=== PATIENT | female | born 1995 | race Caucasian/White ===

== ENCOUNTER 2020-06-05 14:21 | Outpatient (CLI) | payer OTHER | END 2020-06-05 14:22 | disposition EMS.NT | LOC: EMS 14:21 | DX: M25.572 Pain in left ankle and joints of left foot (principal) ==

== ENCOUNTER 2020-06-05 14:46 | Emergency (ER) | payer OTHER ==
--- NOTE | 2020-06-05 14:59 | ED Physician Documentation ---
PD HPI LOWER EXT INJURY - Stated complaint Stated Complaint: LT ANKLE INJ - Chief complaint Chief Complaint: Trauma Ext - History obtained from History obtained from: Patient - History of Present Illness PD HPI LOW EXT INJURY LOCATION: Left, Ankle Type of injury: Fall, Twist (fell and landed to left ankle, with pain and deformity. Unable to stand back up. 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 No: Weakness, Numbness Similar symptoms before: Has not had sx before Recently seen: Not recently seen Review of Systems Constitutional: denies: Fever Nose: denies: Rhinorrhea / runny nose, Congestion Throat: denies: Sore throat Respiratory: denies: Cough Skin: denies: Abrasion (s), Laceration (s) Neurologic: denies: Focal weakness, Numbness, Headache, Head injury PD PAST MEDICAL HISTORY - Past Medical History Cardiovascular: None Musculoskeletal: None - Present Medications Home Medications: Ambulatory Orders Medication Instructions Recorded Confirmed HYDROcod/ACETAM 5/325 [Sorrento 5/325] 1 ea PO Q6H PRN #20 tablet 06/05/20 Ibuprofen [Motrin] 600 mg PO TID PRN #25 tab 06/05/20 - Allergies Allergies/Adverse Reactions: Allergies Allergy/AdvReac Type Severity Reaction Status Date / Time amoxicillin Allergy Rash Verified 06/05/20 14:50 PD ED PE NORMAL - Vitals Vital signs reviewed: Yes - General General: Alert and oriented X 3, Well developed/nourished, Other (appears in pain. Vacuum splint in place on left ankle/lower leg. ) - HEENT HEENT: Atraumatic - Neck Neck: Supple, no meningeal sign, No bony TTP - Respiratory Respiratory: Clear bilaterally, Other (no chestwall tenderness. ) - Abdomen Abdomen: Soft, Non tender - Derm Derm: Normal color, Warm and dry - Extremities Extremities: Other (Leg ankle is markedly tender both medially and laterally. There is some slight apparent lateral displacement of the foot in the mortise. Good color and capillary refill are noted in the foot. Normal sensation and toe wiggling. She is unable to move her ankle.) - Neuro Neuro: Alert and oriented X 3, No motor deficit, No sensory deficit, Normal speech Results - Vitals Vitals: Oxygen O2 Source Room air - Rads (name of study) left ankle Radiology: Prelim report reviewed (distal fibular fracture with lateral displacement and widening of medial mortis. ), See rad report Procedures - Splint (location) left ankle Splint applied by: Physician Type of splint: Fiberglass, Posterior, Stirrup Other: Patient tolerated well, No complications, Neurovascular intact, Good alignment, Crutches provided PD MEDICAL DECISION MAKING - ED course Complexity details: reviewed results (fibular fracture and widened medial mortis.), considered differential, d/w patient Departure - Departure Disposition: Home, Self Care Clinical Impression: Closed fibular fracture Qualifiers: Encounter type: initial encounter Fibula location: lateral malleolus Fracture alignment: displaced Laterality: left Qualified Code(s): S82.62XA - Displaced fracture of lateral malleolus of left fibula, initial encounter for closed fracture Medial ankle sprain Qualifiers: Encounter type: initial encounter Laterality: left Qualified Code(s): S93.422A - Sprain of deltoid ligament of left ankle, initial encounter Condition: Stable Record reviewed to determine appropriate education?: Yes Instructions: ED Fx Ankle General Follow-Up: Xu Maravilla MD [Provider Admit Priv/Credential] - Prescriptions: Ibuprofen [Motrin] 600 mg PO TID PRN #25 tab PRN Reason: Pain HYDROcod/ACETAM 5/325 [Sorrento 5/325] 1 ea PO Q6H PRN #20 tablet PRN Reason: Pain Comments: Elevate rest and ice the ankle often to reduce swelling. Keep the splint on. Use crutches for nonweightbearing. Ibuprofen three times a day with food. To that add Tylenol or hydrocodone as needed for pain. Follow-up with orthopedics within the next week or so. Call Monday morning for an appointment. This may need surgical repair and will be the judgment of the orthopedist when seen on follow-up. Limited activity until follow-up. Discharge Date/Time: 06/05/20 17:24
[2020-06-05] MEDS ORDERED: HYDROmorphone 2 MG/ML VIAL IM STA (15:13)
[2020-06-05] MEDS ORDERED: KETOROLAC 30 MG/ML VIAL IM STA (15:13)
--- NOTE | 2020-06-05 15:20 | XRAY Report ---
PROCEDURE: Ankle 3 View LT INDICATIONS: Trauma TECHNIQUE: 3 views of the ankle were acquired. COMPARISON: None FINDINGS: Bones: Acute oblique fracture through distal fibular shaft is seen with posterior and medial displace ment at fracture site. There is complete disruption of ankle mortise with markedly widened medial ank le mortise and lateral subluxation at the tibiotalar joint. Nondisplaced fracture involving posterior malleolus is seen. Ankle mortise is normally aligned. No suspicious bony lesions. Soft tissues: No tibiotalar joint effusion. Achilles tendon appears normal. IMPRESSION: 1. Acute oblique and displaced fracture involving distal fibular shaft. 2. Nondisplaced posterior malleolus fracture. 3. Complete disruption of ankle mortise with lateral subluxation at tibiotalar joint. Reviewed by: Demetrius Sapp MD on 06/05/2020 2:19 PM YUNG Approved by: Demetrius Sapp MD on 06/05/2020 2:19 PM [place] Station ID: [id number]
[2020-06-05 16:26] VITALS: BP 113/79
== END 2020-06-05 17:24 | disposition home or self-care (01) ==
LOC: ED 14:46
DX: S82.62XA Displaced fracture of lateral malleolus of left fibula, initial encounter for closed fracture (principal); S82.55XA Nondisplaced fracture of medial malleolus of left tibia, initial encounter for closed fracture; S93.422A Sprain of deltoid ligament of left ankle, initial encounter; W19.XXXA Unspecified fall, initial encounter
CPT/HCPCS: 29515; 73610; 96372; 99283; 99284; J1170

== ENCOUNTER 2020-06-11 08:00 | Outpatient (CLI) | payer OTHER ==
--- NOTE | 2020-06-11 14:42 | XRAY Report ---
PROCEDURE: Ankle 3 View LT INDICATIONS: LT ANKLE PAIN TECHNIQUE: 3 views of the ankle were acquired. COMPARISON: 06/05/2020 FINDINGS: Bones: Redemonstration of oblique distal left fibular diaphyseal fracture in improved alignment. Rede monstration of mildly displaced posterior malleolar fracture. There is persistent but improved wideni ng of the left medial ankle mortise secondary to persistent lateral subluxation of the talar dome rel ative to the distal tibia. No suspicious bony lesions. Soft tissues: No substantial anterior tibiotalar joint effusion. Achilles tendon appears normal. M oderate overlying soft tissue swelling. IMPRESSION: 1. Improved alignment of oblique, displaced fracture of the distal left femur diaphysis. 2. Mildly displaced posterior malleolus fracture. 3. Persistent but decreased lateral subluxation at the tibiotalar joint. Reviewed by: Clay Leblanc MD on 06/11/2020 1:41 PM YUNG Approved by: Clay Leblanc MD on 06/11/2020 1:41 PM YUNG Station ID: [id number]
== END 2020-06-11 23:59 | disposition home or self-care (01) ==
LOC: DI.N 08:00
PROVIDERS: ATTEND Orthopaedic Surgery
DX: S72.332A Displaced oblique fracture of shaft of left femur, initial encounter for closed fracture (principal); S82.892A Other fracture of left lower leg, initial encounter for closed fracture; S93.02XA Subluxation of left ankle joint, initial encounter; Z01.812 Encounter for preprocedural laboratory examination; Z20.822 Contact with and (suspected) exposure to COVID-19

== ENCOUNTER 2020-06-11 12:00 | Outpatient (CLI) | payer OTHER | END 2020-06-11 12:01 | disposition home or self-care (01) | LOC: LAB.N 12:00 | PROVIDERS: ATTEND Orthopaedic Surgery | DX: Z01.812 Encounter for preprocedural laboratory examination (principal); Z20.822 Contact with and (suspected) exposure to COVID-19 ==

== ENCOUNTER 2020-06-17 06:45 | Day surgery (SDC) | payer OTHER ==
[2020-06-17] MEDS ORDERED: ACETAMINOPHEN 1,000 MG/100 ML 100 ML IV ONE (06:48)
[2020-06-17 07:18] LABS: HCG UR QUAL NEGATIVE
[2020-06-17] MEDS ORDERED: GABAPENTIN 400 MG CAPSULE ONE (07:19)
[2020-06-17] MEDS ORDERED: LACTATED RINGERS 1,000 ML IV ONE ×2 (07:24→13:25)
[2020-06-17] MEDS ORDERED: CELECOXIB 100 MG CAPSULE PO ONE (07:48)
[2020-06-17] MEDS ORDERED: HYDROmorphone 0.5 MG/0.5 ML SYRINGE IVP PRN (08:00)
[2020-06-17] MEDS ORDERED: METOCLOPRAMIDE 10 MG/2 ML VIAL IVP PRN (08:00)
[2020-06-17] MEDS ORDERED: ePHEDrine 50 MG/ML VIAL IVP PRN (08:00)
[2020-06-17] MEDS ORDERED: LACTATED RINGERS 1,000 ML IV SCH (08:00)
[2020-06-17] MEDS ORDERED: NALOXONE 0.4 MG/ML VIAL IVP PRN (08:00)
[2020-06-17] MEDS ORDERED: ceFAZolin 3 GM in SODIUM CHLORIDE 0.9% 100ML 100 ML IV SCH (08:00)
[2020-06-17] MEDS ORDERED: ONDANSETRON 4 MG/2 ML VIAL IVP PRN (08:00)
[2020-06-17] MEDS ORDERED: ATROPINE ABBOJECT 1 MG/10 ML SYRINGE IVP PRN (08:00)
[2020-06-17] MEDS ORDERED: MORPHINE 2 MG/ML CARPUJECT IVP PRN (08:00)
[2020-06-17] MEDS ORDERED: fentaNYL 100 MCG/2 ML VIAL IVP PRN (08:00)
--- NOTE | 2020-06-17 08:00 | ANESTHESIA ---
Pre-Anesthesia VS, & Labs - Diagnosis L trimalleolar fracture - Procedure L ankle ORIF Vital Signs: Temp Pulse Resp BP Pulse Ox 36.8 C 109 H 16 139/88 H 100 06/17/20 07:24 06/17/20 07:24 06/17/20 07:24 06/17/20 07:24 06/17/20 07:24 Height: 5 ft 6 in Weight (kg): 127.3 kg Body Mass Index: 45.3 BMI Classification: Morbidly Obese - NPO >8 hours - Is Patient ?: No - Lab Results Current Lab Results: Laboratory Tests 06/17/20 07:42: POC Whole Bld Glucose 129 H Lab results reviewed: Yes Home Medications and Allergies Home Medications: Ambulatory Orders Acetaminophen [Tylenol] 650 mg PO Q6H PRN 06/15/20 Citalopram Hydrobromide [Celexa] 20 mg PO DAILY 06/15/20 Active Medications Cefazolin Sodium 3 gm/ Sodium (Chloride) 100 mls @ 200 mls/hr IV ONCE APOLINAR Stop: 06/17/20 13:00 Acetaminophen [Tylenol] 650 mg PO Q6H PRN 06/15/20 Citalopram Hydrobromide [Celexa] 20 mg PO DAILY 06/15/20 Allergies/Adverse Reactions: Allergies Allergy/AdvReac Type Severity Reaction Status Date / Time amoxicillin Allergy Rash Verified 06/17/20 07:35 Anes History & Medical History - Anesthetic History Anesthesia Complications: reports: No previous complications Family history of Anesthesia Complications: Denies Family history of Malignant Hyperthermia: Denies - Medical History Cardiovascular: reports: None Pulmonary: reports: None Gastrointestinal: reports: None Urinary: reports: None Musculoskeletal: reports: None Endocrine/Autoimmune: reports: None Skin: reports: None Smoking Status: Never smoker - Surgical History Eyes Ears Nose Throat (EENT): reports: Tonsil/Adenoidectomy Exam General: Alert, Oriented x3, Cooperative Dental: WNL Mouth Openin Fingerbreadth Neck Mobility: Normal Mallampati classification: I Thyromental Distance: 4-6 cm Respiratory: Lungs clear, Normal breath sounds, No respiratory distress Cardiovascular: Regular rate Mental/Cognitive Status: Alert/Oriented X3, Normal for patient Cognitive Status: Within normal limits Plan Anesthesia Type: General, Popliteal Block Regional Block: Per Surgeon's request for Post Op pain control Consent for Procedure(s) Verified and Reviewed: Yes Code Status: Attempt Resuscitation ASA classification: 2-Mild systemic disease Is this case an emergency?: No
[2020-06-17] MEDS ORDERED: PROPOFOL 200 MG/20 ML VIAL IVP ONE (08:03)
[2020-06-17] MEDS ORDERED: LIDOCAINE-MPF 2% 5 ML VIAL ONE (08:03)
[2020-06-17] MEDS ORDERED: MIDAZOLAM 2 MG/2 ML VIAL ONE (08:04)
[2020-06-17] MEDS ORDERED: fentaNYL 100 MCG/2 ML VIAL ONE ×2 (08:04→10:02)
[2020-06-17] MEDS ORDERED: ROPIVACAINE 0.5% PF 20 ML AMPULE ONE (08:04)
[2020-06-17] MEDS ORDERED: DEXAMETHASONE 4 MG/ML VIAL ONE ×2 (08:05→09:51)
[2020-06-17] MEDS ORDERED: oxyCODONE 5 MG TABLET PO PRN (08:43)
[2020-06-17] MEDS ORDERED: ONDANSETRON 4 MG/2 ML VIAL ONE (09:51)
[2020-06-17] MEDS ORDERED: KETOROLAC 30 MG/ML VIAL ONE (09:51)
[2020-06-17] MEDS ORDERED: HYDROmorphone 1 MG/ML CARPUJECT ONE (10:02)
[2020-06-17] MEDS ORDERED: SEVOFLURANE 250 ML LIQUID INH ONE (11:28)
[2020-06-17] MEDS ORDERED: VANCOMYCIN 1 GM VIAL ONE (12:36)
[2020-06-17] MEDS ORDERED: BUPIVACAINE 0.5%-EPI 1:200000 PF 30 ML VIAL ONE (12:41)
[2020-06-17] MEDS ORDERED: VANCOMYCIN 1 GM VIAL MC ONE (12:52)
[2020-06-17] MEDS ORDERED: BUPIVACAINE 0.5%-EPI 1:200000 PF 30 ML VIAL SUBQ ONE ×2 (12:52)
--- NOTE | 2020-06-17 13:31 | OPERATIVE REPORT ---
Operative Report - General Procedure Date: 06/17/20 Planned Procedure: Open reduction internal fixation left ankle Pre-Op Diagnosis: Displaced trimalleolar equivalent fracture subluxation left ankle Procedure Performed: Open reduction internal fixation left fibula, repair of distal syndesmosis and repair of deltoid ligament left ankle Post Op Diagnosis: Same as preoperative diagnosis - Procedure Note Primary Surgeon: Xu Maravilla MD Secondary Surgeon: Dariusz JOE Anesthesia Provider: Rona Benoit CRNA Anesthesia Technique: General ET tube, Regional block Estimated Blood Loss (mL): 100 Indications: This is a 25-year-old woman twisted her left ankle and fell from a standing positionAnd sustained an isolated injury to her left ankle. She sustained a trimalleolar equivalent fracture subluxation withWidened medial clear space suggestive of complete deltoid rupture, slight widening of the syndesmosis and a displaced long olbliqueSkin is intact. Neurovascular status intact. No sign of compartment syndrome left leg. The injury happened several days ago and the swelling has decreased to a safe level fibular fracture. Findings: There was a long fibular fracture beginning near the lateral malleolus and ext ending several centimeters proximally from anterior to posterior. There is a fracture over the anterior aspect of the lateral malleolus adjacent to the syndesmosis distally. The deltoid ligament was completely ruptured just below the medial malleolus, superficial portion of the deltoid. Complications: None - Other Other Information/Narrative: The patient does have brought to the operating room table. After general endotracheal anesthesia been achieved, a popliteal block was performed. The patient is morbidly obese. The left buttock was elevated with large gel bag and bone foam was applied to the operating room table to position the left lower extremity. The left lower extremity was prepped and draped in a sterile manner in the usual fashion. A timeout procedure was performed by the entire operating room team and all were in agreement. Cast padding was applied to the left calf and a sterile tourniquet was applied to the left calf. A several centimeter posterior lateral longitudinal incision was made paralleling the fibula. The fracture was exposed subperiosteally. The peroneal tendons were protected. Self-retaining retractors were inserted. Bone clamps were applied proximally and distally. The left ankle was placed over a large bump to facilitate longitudinal traction. The fracture was reduced and temporarily stabilized with a bone-holding clamp. C arm intraoperative x-ray was obtained and shows satisfactory alignment. A 3.5 mm cortical lag screw was inserted from anterior to posterior and proximal to distal to stabilized portion of the fracture. A second lag screw was used to stabilize the anterior lateral malleolar fragment, 2.7 mm. The posterolateral [employer] plate was applied and positioned. The plate was secured with bone clamp and K wire. The intraoperative x-ray showed good position of the plate. Screws were then inserted distally and then proximally and an additional lag screw was inserted outside of the plate using a 3.5 mm cortical screw. With plate and screw fixation, the fracture was stabilized and appeared to have good anatomic alignment especially with regard to length and rotation. The syndesmosis seemed to be unstable when using a bone clamp and therefore, a syndesmosis tight rope made by [employer] was utilized. This was inserted just outside the plate using a drill, 4 cortices. The button was secured over the lateral cortex and then a knot was placed over the button after the syndesmosis had been stabilized. This added additional stability to the syndesmosis. A second longitudinal incision was made over the medial malleolus after the subcutaneous tissue had been incised, the deltoid rupture was identified just below the medial malleolus. The posterior tibial tendon was protected. The deltoid was repaired with #1 locking Ethibond suture with multiple suture strands going through the distal portion of the superficial deltoid. The end of the medial malleolus was gently debrided with a rongeur and the Arthrex 4.75 swivel lock was inserted with the sutures.Additional sutures were utilized from the anchor to complete the repair which seemed to be quite secure and added additional stability. The ankle mortise appeared to be normal on C arm images on AP and oblique views as well as the mortise view.The tourniquet was used to repair the deltoid approximately 30 minutes. The wounds were thoroughly irrigated. 2 g of vancomycin powder was applied over the fibular plate. The fascial layer was closed with 2-0 Vicryl, subcutaneous tissue with 2-0 Vicryl and the fibular incision was closed with stainless steel rose. The medial incision was closed with 2-0 Vicryl to the subcutaneous tissue and stainless steel rose to the skin. The saphenous nerve was blocked with 15 cc of half percent plain Marcaine. A physician assistant media planner was utilized in this case and felt to be necessary to help with reduction, exposure, protection of vital structures, wound closure and splint application. A short leg well-padded modified Sean Lamar dressing with fiberglass posterior splint was applied to the left leg. She tolerated the procedure well
[2020-06-17 15:05] VITALS: BP 127/84
--- NOTE | 2020-06-17 16:41 | XRAY Report ---
PROCEDURE: OR C-Arm Procedure INDICATIONS: left ankle fracture TECHNIQUE: Intraoperative evaluation at termination of ORIF of distal fibular fracture was performed. COMPARISON: Prior ankle trauma plain films. FINDINGS: A lateral fibular excision plate has been placed with multiple transverse cortical screws and the ali gnment along the previously identified fracture plane at the fibula is virtually anatomic. There is a n apparent interosseous membrane transverse fixation device between the distal tibia and fibula horiz ontally oriented. Ankle mortise joint is normal. IMPRESSION: Virtual anatomic alignment established at termination of the ORIF procedure, which includes a lateral fixation plate and fixation between the distal tibia and fibula horizontally to assist in healing in normal alignment across the interosseous region. Reviewed by: Festus Lowery MD on 06/17/2020 4:39 PM PDT Approved by: Festus Lowery MD on 06/17/2020 4:39 PM PDT Station ID: [id number]
--- NOTE | 2020-06-17 16:44 | ANESTHESIA POST OP EVALUATION ---
Anesthesia Post Eval - Post Anesthesia Eval Vitals: Last Vital Signs Temp 36.5 C 06/17/20 14:50 Pulse 101 H 06/17/20 14:50 Resp 16 06/17/20 14:50 BP 127/84 H 06/17/20 14:50 Pulse Ox 99 06/17/20 14:50 CV Function Including HR & BP: Stable Pain Control: Satisfactory Nausea & Vomiting: Negative Mental Status: Baseline Respiratory Status: Airway Patent Hydration Status: Satisfactory Anesthesia Complications: None
== END 2020-06-17 06:46 | disposition home or self-care (01) ==
LOC: SDS 06:45
PROVIDERS: ATTEND Orthopaedic Surgery
PROC: 0MQR0ZZ Repair Left Ankle Bursa and Ligament, Open Approach (ICD-10-PCS; 2020-06-17)
PROC: 0QSK04Z Reposition Left Fibula with Internal Fixation Device, Open Approach (ICD-10-PCS; principal; 2020-06-17 08:15)
DX: S82.852A Displaced trimalleolar fracture of left lower leg, initial encounter for closed fracture (principal); E66.01 Morbid (severe) obesity due to excess calories; Z68.42 Body mass index [BMI] 45.0-49.9, adult
CPT/HCPCS: 27695; 27822; 81025; A9270; J0131; J1170; J3370; J3490; J7120; C1713

== ENCOUNTER 2020-09-07 12:25 | Outpatient (CLI) | payer OTHER ==
--- NOTE | 2020-09-07 16:21 | XRAY Report ---
PROCEDURE: Ankle 3 View LT INDICATIONS: DISPLACED TRIMALLEOLAR FX OF R LOWER LEG TECHNIQUE: 3 views of the ankle were acquired. COMPARISON: Ankle x-ray 06/11/2020 FINDINGS: Bones: No acute fractures or dislocations. ORIF of the distal left fibula as well as surgical fixati on of the medial malleolus are present. Hardware is intact. Hardware is intact without evidence of york rdware fracture or periprosthetic lucency to suggest loosening. Old posterior malleoli or fracture is noted. Ankle mortise is normally aligned. No suspicious bony lesions. Soft tissues: No tibiotalar joint effusion. Achilles tendon appears normal. IMPRESSION: Postsurgical changes as above. Reviewed by: Ingris Thakur MD on 09/07/2020 4:19 PM PDT Approved by: Ingris Thakur MD on 09/07/2020 4:19 PM PDT Station ID: [id number]
== END 2020-09-07 23:59 | disposition home or self-care (01) ==
LOC: DI.N 12:25
PROVIDERS: ATTEND Physician Assistant
DX: S82.842A Displaced bimalleolar fracture of left lower leg, initial encounter for closed fracture (principal)